=== PATIENT | female | born 1945 | race Caucasian/White ===

== ENCOUNTER → 2019-05-29 | Outpatient (CLI) | payer MEDICARE ==
--- NOTE | 2019-05-29 13:34 | PCVCIMAG ---
EXAM: ABDOMINAL ULTRASOUND COMPLETE INDICATION: Recent indeterminate low-density lesion seen on CT. FINDINGS: Gallbladder: No gallstones. No wall thickening or abnormal pericholecystic fluid. Liver: Normal in size measuring 12.2 cm in length. There is a 1.8 x 1.4 cm benign cyst superior liver which corresponds to the low-density lesion seen on today's CT examination. Bile ducts: No intra or extra hepatic bile duct dilatation. The common bile duct measures 3.1 mm. Pancreas: Unremarkable where seen. Spleen: Not well seen. Right kidney: No hydronephrosis. Length measures 9.9 cm. Left kidney: No hydronephrosis. Length measures 9.8 cm. Inferior vena cava: Normal in size where seen. Aorta: Normal in caliber where seen. IMPRESSION: 1.8 cm benign cyst superior liver corresponds to low-density lesion seen on today's CT examination. LOC:[id number]
== END | disposition home or self-care (01) ==
LOC: PCVCIMAG 12:03
PROVIDERS: ATTEND Internal Medicine Cardiovascular Disease
DX: K76.89 Other specified diseases of liver (principal)
CPT/HCPCS: 76700; 76705